=== PATIENT | male | born 1985 | race Caucasian/White ===

== ENCOUNTER 2022-05-12 01:11 | Day surgery (SDC) | payer OTHER, SELFPAY ==
[2022-04-29 13:29] VITALS: BMI 24.5
--- NOTE | 2022-04-29 13:48 | PC.NURSE ---
Addendum entered by Pako Melendez RN 04/30/22 14:51: pt instructed to hold his vitamins on 05/09/22 until after surgery Original Note: Report to the Outpatient Waiting Room, entrance under the [facility] located off [facility], at time 0700_ on date _05/12/22. Planned Procedure Time: 0900. Time changes happen often and if your time is changed the preop area will call you the afternoon before. - You and your visitor will be asked to self-screen and do not enter if you have any COVID symptoms. - Only one visitor is requested with a max of two and NO children visitors are allowed at this time. - The patient visitor may be requested to leave or wait in car when not with patient due to distancing restrictions. - A mask is optional within the hospital. Patients may have clear liquids (water, carbonated beverages, clear teas, apple juice) until 3 hours prior to surgery with a maximum of 20 ounces. - No food from midnight until time of surgery - Infants may have breast milk until 4 hours before surgery, formula 6 hours prior to surgery. - Children will be allowed to drink immediately following surgery. If applicable, please bring a bottle or sippy cup to assist with drinking. Juice, water, soda, and popsicles are readily available. For infants on formula, please bring formula the day of surgery. Pacifiers are allowed. Take the following medications with a SIP of water the morning of surgery: Medications to discontinue per physician multivitamin Date to take last dose_05/12/22_ Please no make-up, nail belizean, hairspray, perfume, deodorant, or body powder the day of surgery. No jewelry (including any body piercings) or valuables the day of surgery, leave them at home. Please take a shower or bath the night before, or the morning of, surgery with an antibacterial soap. Wear comfortable, loose fitting clothing. Children are encouraged to wear pajamas. - Jewelry must be removed prior to entering the operating room. Rings and piercings that are not removed may be cut off. - The hospital will not accept responsibility for valuables. - Please leave all valuables, including medications, at home the day of surgery. If you are going home after surgery, a licensed tow motor driver must drive you home. - NO public transportation without another adult if you receive anesthesia. - We recommend that an adult stay with you for 24 hours following discharge. - We also recommend that you do not drive, make important decision, drink alcoholic beverages, or take any drugs that were not prescribed by your health care provider for at least 24 hours after your discharge time. For Pediatric surgeries, we recommend two adults accompany the child home. Follow any additional instructions given to you from your surgeon. If you or anyone in your household have experienced Covid symptoms in the past week, please notify your surgeon or the nurse liaison at the phone number below for possible testing. Telephone instructions given to Samantha Alejandre and asked if any additional questions and then verbalized understanding. Patient advised to call surgeon office or pre surgery nurse liaison [phone] if any additional questions.
[2022-05-12] VITALS (8 sets, daily range): BP systolic 110–131; BP diastolic 63–82; PULSE 72–112; RESP 10–16; TEMP 36.1–36.4; O2SAT 97–100
[2022-05-12] MEDS: LACTATED RINGERS 1,000 ML 30 ML IV CONT ×2 (07:30→11:50)
--- NOTE | 2022-05-12 08:06 | P.PNAN_ITS ---
Anes - Initial Pre Proc Eval Procedure: Operation Date: 05/12/22 09:00 Proposed Procedures p Neck Lift with Submental Scar - Alessio Crump MD Date/Time: 05/12/22 08:06 Surgeon: Alessio Crump MD Pre Op Diagnosis: skin laxity Patient Data Age: 36 Gender: M Height: 1.83 m Weight: 82.5 kg Last Vital Signs Temp 36.1 C L 05/12/22 07:30 Pulse 92 05/12/22 07:30 Resp 16 05/12/22 07:30 BP 116/81 05/12/22 07:30 Pulse Ox 100 05/12/22 07:30 O2 Del Method Room Air 05/12/22 07:30 Allergies Allergy/AdvReac Type Severity Reaction Status Date / Time No Known Allergies Allergy Verified 05/12/22 07:48 Home Medications Medication Instructions Recorded Confirmed Type finasteride 5 mg tablet 5 mg PO DAILY 04/29/22 05/12/22 History multivit with minerals-iron 18 1 tablet PO DAILY 04/29/22 05/12/22 History mg-folic ac 400 mcg-vit K 25 mcg tablet (Adults Multivitamin) Patient hx anesthesia problems: none Family hx anesthesia problems: none Results Review: All pre-operative results and documents have been reviewed as part of the pre- operative evaluation. [facility] Social History Social History Smoking status: Never smoker Alcohol intake: current Substance use: current Substance use type: marijuana Other substance usage details: rarely Living arrangements: with family Spiritual care concerns: No Anes - Eval Final PreProcedure Day of Procedure 05/12/22 08:06 Patient weight: normal Heart: regular rate and rhythm Lungs: clear to auscultation Airway: Mallampati scale class II and other (mild TMJ popping/clicking) Neurological: alert and oriented Last oral intake: >/= 8 hours ASA classification: I Emergent: no Anesthetic plan: proceed Anesthesia type and monitoring: general ETT and standard monitoring Results Review: All pre-operative results and documents have been reviewed as part of the pre- operative evaluation. Informed Consent: The patient's anesthetic plan and its attendant risks and benefits were discussed with the patient/family/POA. Questions were solicited and answers provided to the satisfaction of the patient/family/POA.
--- NOTE | 2022-05-12 08:43 | WPDHPUPDATE1 ---
History and Physical Update Update Date/Time: 05/12/22 08:43 History and Physical has been reviewed, including an updated exam of the patient. There are NO changes in the patient's condition. Risks, benefits, and alternatives have been discussed and questions answered. Patient agrees to proceed with procedure.
--- NOTE | 2022-05-12 08:44 | P.OP_ITS ---
Procedure Note - Detailed Date of Procedure 05/12/22 Pre-op Diagnosis skin laxity Post-op Diagnosis Same Procedure Performed Cervicoplasty Surgeon Alessio Crump MD Anesthesia General Findings Lipoaspirate 75cc Description of Procedure Preoperatively the risks, benefits, alternatives were discussed in extensive detail. I want him and his family to be very realistic about the risks involved as well as expectations. Again reviewed all options for treatment including advantages, disadvantages and risks of each. All questions answered to their satisfaction. They voiced a clear understanding. Consent was obtained. He was taken to the operating room placed supine on the operating room table. Anesthesia provided by anesthesiology. Prepped and draped in a standard sterile fashion. Surgical time-out was taken. I tumesced with a tumescent solution on a spinal needle. Once adequate time for hemostasis a 15 blade used to make a submental incision. Dissection was continued down until the platysma was identified I elevated sub platysmal. Ther e was a minimal prominence of the submandibular glands and a small resection of superficial portion was completed bilateral with care taken to prevent from nerve, vascular other structure injury. I resected just obviously excess sub platysmal adipose tissue. I then completed suction lipectomy subcutaneous using a 3 mm flat cannula utilizing power assisted liposuction multiple planes and passes along the region to optimize contour. I elevated just superficial to the platysma laterally which had already been discontinuously undermined with the suction lipectomy. Platysma was divided at the level of the hyoid. I then reapproximated the platysma which was sutured using 2-0 Vicryl. A 7 Kofi drain was placed and brought out left postauricular and sutured into place with a 4-0 Vicryl. I closed submental using 3-0 Monocryl followed by running subcuticular 4-0 Monocryl and tissue glue. Dressing was placed. Patient was woken taken to the PACU without difficulty. All instrument sponge counts were correct at the end of the case. Estimated Blood Loss 20 Drains Yes (Kofi) Packing No Pathology None sent Complications No immediate complications Condition Stable Disposition PACU
[2022-05-12] MEDS: TRANEXAMIC ACID 1,000MG/ISO100 1,000 MG/100 ML BAG 200 MG IVPB (08:55)
[2022-05-12] MEDS: ceFAZolin 2 GM/D5W 50 ML 2 GM/50 ML BAG IVPB (09:00)
[2022-05-12 09:07] LABS: Urine Cotinine NEGATIVE
[2022-05-12] MEDS: fentaNYL CITRATE INJ (*CRX) 100 MCG/2 ML VIAL 25 MCG IV PUSH ×4 (12:06→12:32)
[2022-05-12] MEDS: ONDANSETRON INJ 4 MG/2 ML VIAL IV PUSH (12:29)
[2022-05-12] MEDS: SCOPOLAMINE 1.5 MG PATCH TRANSDERM (13:15)
[2022-05-12] MEDS: oxyCODONE HCL (*CRX) 5 MG TAB IR PO (13:39)
== END 2022-05-12 14:20 | disposition home or self-care (01) ==
PROVIDERS: Visit Provider Surgery Plastic and Reconstructive Surgery
PROC: (CPT 15819; principal; 2022-05-12 09:00)
PROC: (CPT 15876; 2022-05-12 09:00)
DX: Z41.1 Encounter for cosmetic surgery (principal); L57.4 Cutis laxa senilis; F12.90 Cannabis use, unspecified, uncomplicated
CPT/HCPCS: 15819; 80307; A9270; J0171; J0330; J0690; J1100; J1170; J2250; J2405; J2704; J3010; J7030; J7120